=== PATIENT | male | born 2005 | race Two or more races ===

== ENCOUNTER 2024-04-07 21:34 | Emergency (ER) | payer MEDICAID, SELFPAY ==
--- NOTE | 2024-04-07 21:55 | PC.NURSE ---
NO ANSWER AT ER LOBBY OR OUTSIDE ER TO BE SEEN BY PROVIDER.
--- NOTE | 2024-04-07 21:55 | PC.NURSE ---
no answer in lobby or outside when called for vital signs
--- NOTE | 2024-04-07 22:12 | PC.NURSE ---
NO ANSWER AT ER LOBBY OR OUTSIDE ER TO BE SEEN BY PROVIDER.
== END 2024-04-07 22:19 | disposition left against medical advice (07) ==
LOC: SERX 22:21
PROVIDERS: Emergency Provider Emergency Medicine
DX: Z53.21 Procedure and treatment not carried out due to patient leaving prior to being seen by health care provider (principal)